=== PATIENT | male | born 1990 | race Caucasian/White ===

== ENCOUNTER 2017-03-04 23:40 | Emergency (ER) | payer SELFPAY ==
[2017-03-05 00:25] LABS: ABSOLUTE BASOPHILS # (AUTO) 0.1 10^3/uL (0.0-0.2); ABSOLUTE EOSINOPHILS # (AUTO) 0.2 10^3/uL (0.0-0.6); ABSOLUTE LYMPHOCYTES (AUTO) 3.3 10^3/uL (0.5-4.7); ABSOLUTE MONOCYTES (AUTO) 1.5 10^3/uL (0.1-1.4); ABSOLUTE NEUT (AUTO) 10.3 10^3/uL (1.7-8.2); BASOPHILS % (AUTO) 0.5 % (0-2); EOSINOPHILS % (AUTO) 1.5 % (0-6); HEMATOCRIT 38.5 % (37.9-51.0); HEMOGLOBIN 13.2 g/dL (13.5-17.0); HGB HCT DIFFERENCE 1.1; LYMPHOCYTES % (AUTO) 21.6 % (13-45); MEAN CORPUSCULAR HEMOGLOBIN 29.5 pg (27.0-33.4); MEAN CORPUSCULAR HGB CONC 34.2 g/dL (32.0-36.0); MEAN CORPUSCULAR VOLUME 86 fl (80-97); MONOCYTES % (AUTO) 9.7 % (3-13); RED BLOOD COUNT 4.48 10^6/uL (4.35-5.55); SEGMENTED NEUTROPHILS % (AUTO) 66.7 % (42-78); WHITE BLOOD COUNT 15.4 10^3/uL (4.0-10.5)
[2017-03-05 00:34] LABS: APPEARANCE,URINE CLEAR; BILIRUBIN,URINE SMALL (NEGATIVE); GLUCOSE, URINE NEGATIVE (NEGATIVE); KETONES,URINE NEGATIVE (NEGATIVE); LEUKOCYTE ESTERASE,URINE NEGATIVE (NEGATIVE); NITRITE,URINE NEGATIVE (NEGATIVE); PROTEIN,URINE 30 mg/dL (NEGATIVE); URINE SPECIFIC GRAVITY 1.044
--- NOTE | 2017-03-05 00:42 | ER Document Report ---
ED General - General Chief Complaint: SOB, urinary issue, neck pain, back pain Stated Complaint: SHORTNESS OF BREATH, URINARY PROBLEM Time Seen by Provider: 03/05/17 00:30 Notes: Patient is a 26-year-old male that comes emergency department with multiple complaints. He states he feels short of breath, he has a cough he cannot get rid of, is across his body including his back and neck, and he is urinating what appears to be pink urine. He states he feels lightheaded. Denies vomiting, fever, diarrhea. He denies chest pain. He admits to snorting both heroin and methamphetamine. He denies injecting anything. He drinks regular alcohol. He takes no daily prescribed medication. TRAVEL OUTSIDE OF THE [place] IN LAST 30 DAYS: No - Related Data Allergies/Adverse Reactions: amoxicillin [Amoxicillin] Allergy (Verified 12/18/15 04:12) Past Medical History - General Information source: Patient - Social History Smoking Status: Former Smoker Drug Abuse: Heroin, Methamphetamine Lives with: Spouse/Significant other Family History: Reviewed & Not Pertinent Renal/ Medical History: Denies: Hx Peritoneal Dialysis Psychiatric Medical History: Reports: Hx Attention Deficit Hyperactivity Disorder - ODD Past Surgical History: Reports: Hx Tonsillectomy - Immunizations Hx Diphtheria, Pertussis, Tetanus Vaccination: Yes Review of Systems - Review of Systems Constitutional: No symptoms reported EENT: No symptoms reported Cardiovascular: No symptoms reported Respiratory: See HPI Gastrointestinal: No symptoms reported Genitourinary: No symptoms reported Male Genitourinary: No symptoms reported Musculoskeletal: No symptoms reported Skin: No symptoms reported Hematologic/Lymphatic: No symptoms reported Neurological/Psychological: No symptoms reported Physical Exam - Vital signs Vitals: Temp Pulse Resp BP Pulse Ox 98.5 F 90 16 120/63 98 03/04/17 23:59 03/04/17 23:59 03/04/17 23:59 03/04/17 23:59 03/04/17 23:59 Interpretation: Normal - General General appearance: Appears well In distress: None - HEENT Head: Normocephalic, Atraumatic Eyes: Normal Conjunctiva: Normal Eyelashes: Normal Pupils: PERRL Sinus: Normal Nasal: Normal Mouth/Lips: Normal Mucous membranes: Normal Pharynx: Normal Neck: Normal. No: Meningismus - Respiratory Respiratory status: No respiratory distress. No: Respiratory distress, Labored Chest status: Nontender Breath sounds: Normal, Nonproductive cough. No: Decreased air movement, Wheezing Chest palpation: Normal - Cardiovascular Rhythm: Regular. No: Tachycardia Heart sounds: Normal auscultation, S1 appreciated, S2 appreciated Murmur: No - Abdominal Inspection: Normal Distension: No distension Bowel sounds: Normal Tenderness: Nontender Organomegaly: No organomegaly - Back Back: Normal, Nontender. No: Tender, CVA tenderness, Vertebra tenderness - Extremities General upper extremity: Normal inspection, Nontender, Normal strength, Normal temperature General lower extremity: Normal inspection, Nontender, Normal strength, Normal temperature. No: Edema - Neurological Neuro grossly intact: Yes Cognition: Normal Orientation: AAOx4 Hamlin Coma Scale Eye Opening: Spontaneous Araceli Coma Scale Verbal: Oriented Hamlin Coma Scale Motor: Obeys Commands Araceli Coma Scale Total: 15 Speech: Normal Cranial nerves: Normal Cerebellar coordination: Normal Motor strength normal: LUE, RUE, LLE, RLE Additional motor exam normals: Equal veneer gluer Sensory: Normal - Psychological Associated symptoms: Normal affect, Normal mood - Skin Skin Temperature: Warm Skin Moisture: Dry Skin Color: Normal Course - Re-evaluation Re-evalutation: Patient with a nonproductive cough on exam, however he is actually very well- appearing, alert, has no tachypnea, clear lung sounds, no hypoxia. Soft abdomen , no nuchal rigidity, normal neurovascular exam, no back pain on examination, no saddle anesthesia. Vital signs completely unremarkable. CBC shows leukocytosis at 15,000 with elevated neutrophils but no bandemia. Chemistry unremarkable, urine is consistent with dehydration but is otherwise unremarkable. Chest x-ray shows what is consistent with multifocal pneumonia, possible pulmonary edema, however this is not consistent with patient's presentation. Patient clinically has pneumonia although he is nontoxic. Given Rocephin, doxycycline. Discussed with Dr. Benson. Patient will be treated outpatient for pneumonia with doxycycline, patient will be given return precautions which were discussed in detail, instructed patient to avoid any illicit substances because of risk of infection and danger of . Patient states understanding, states that he will take the antibiotics, avoid illicit substances, and return if he worsens. states understanding and agreement as well. - Vital Signs Vital signs: Temp Pulse Resp BP Pulse Ox 98.5 F 86 16 116/68 96 03/04/17 23:59 03/05/17 03:30 03/05/17 03:30 03/05/17 03:30 03/05/17 03:30 - Laboratory Result Diagrams: 03/05/17 00:05 03/05/17 00:05 Laboratory results interpreted by me: 03/05/17 03/05/17 03/05/17 00:05 00:05 00:10 WBC 15.4 H Hgb 13.2 L Absolute Neutrophils 10.3 H Absolute Monocytes 1.5 H Direct Bilirubin 0.6 H Urine Protein 30 H Urine Bilirubin SMALL H Urine Urobilinogen 4.0 H Urine Ascorbic Acid 40 H Discharge - Discharge Clinical Impression: Shortness of breath Pneumonia Qualifiers: Pneumonia type: due to unspecified organism Laterality: bilateral Lung location : unspecified part of lung Qualified Code(s): J18.9 - Pneumonia, unspecified organism Condition: Stable Disposition: HOME, SELF-CARE Additional Instructions: Workup is consistent with pneumonia in both lungs. Remaining workup shows dehydration but no other specific concerning findings. Take the doxycycline antibiotic to completion. Follow up with Primary Care. Do not use any illegal substances. Return to the ED for any concerning or worsening symptoms including spiking fevers or difficulty breathing. Prescriptions: Doxycycline Hyclate 100 mg PO BID #14 capsule
[2017-03-05 00:56] LABS: ALANINE AMINOTRANSFERASE 35 U/L (21-72); ALBUMIN 3.9 g/dL (3.5-5.0); ALKALINE PHOSPHATASE 90 U/L (38-126); ANION GAP 12 (5-19); ASPARTATE AMINO TRANSFERASE 31 U/L (17-59); BILIRUBIN,DIRECT 0.6 mg/dL (0.0-0.4); BILIRUBIN,TOTAL 0.7 mg/dL (0.2-1.3); BLOOD UREA NITROGEN 13 mg/dL (7-20); CALCIUM 8.7 mg/dL (8.4-10.2); CARBON DIOXIDE 28 mmol/L (22-30); CHLORIDE 100 mmol/L (98-107); CREATININE RESULT 0.74 mg/dL (0.52-1.25); GLUCOSE 104 mg/dL (75-110); LIPASE 36.9 U/L (23-300); POTASSIUM 3.9 mmol/L (3.6-5.0); TOTAL PROTEIN 7.2 g/dL (6.3-8.2)
--- NOTE | 2017-03-05 02:48 | RADIOLOGY REPORT (SQ) ---
EXAM DESCRIPTION: CHEST PA/LAT COMPLETED DATE/TIME: 03/05/2017 1:45 am REASON FOR STUDY: shortness of breath COMPARISON: None. EXAM PARAMETERS: NUMBER OF VIEWS: two views TECHNIQUE: Digital Frontal and Lateral radiographic views of the chest acquired. RADIATION DOSE: NA LIMITATIONS: none FINDINGS: LUNGS AND PLEURA: Moderate bilateral pulmonary edema pattern with airspace patchiness. Mo derate lung volumes. MEDIASTINUM AND HILAR STRUCTURES: No masses or contour abnormalities. HEART AND VASCULAR STRUCTURES: Heart normal size. No evidence for failure. BONES: No acute findings. HARDWARE: None in the chest. OTHER: No other significant finding. IMPRESSION: Moderate pulmonary edema pattern with airspace patchiness and/or multifocal pneumonia. TECHNICAL DOCUMENTATION: JOB ID: [id number] [employer]- All Rights Reserved
[2017-03-05] MEDS ORDERED: DOXYCYCLINE HYCLATE 100 MG TABLET PO ONE (02:54)
[2017-03-05] MEDS ORDERED: NORMAL SALINE 1000 ML 1,000 ML IV ONE (02:55)
[2017-03-05] MEDS ORDERED: CEFTRIAXONE 1 GM/D5W RTU 50 ML IV ONE (02:55)
[2017-03-05 04:00] VITALS: BP 116/68
== END 2017-03-05 04:44 | disposition home or self-care (01) ==
LOC: ER 23:40
DX: R06.02 Shortness of breath (principal); J18.9 Pneumonia, unspecified organism; F15.10 Other stimulant abuse, uncomplicated; F11.10 Opioid abuse, uncomplicated; R82.99 Other abnormal findings in urine; M54.9 Dorsalgia, unspecified; M54.2 Cervicalgia; Z87.891 Personal history of nicotine dependence
CPT/HCPCS: 99285; 96365; 36415; 87040; 83690; 85025; 80053; 81001; 71020; J0696

== ENCOUNTER 2017-03-06 06:11 | Emergency (ER) | payer SELFPAY ==
[2017-03-06 06:23] VITALS: BP 133/62
--- NOTE | 2017-03-06 06:41 | ER Document Report ---
Doctor's Note Notes: 03/06/17 06:39 Went to go see patient, but patient quickly left without being seen from his room. Vitals stable. He told the triage nurse that he could not fill his doxycycline from his visit 2 days ago. Attempted to call the number provided twice, but no answer.
== END 2017-03-06 06:30 | disposition left against medical advice (07) ==
LOC: ER 06:11
DX: Z53.9 Procedure and treatment not carried out, unspecified reason (principal); R06.02 Shortness of breath

== ENCOUNTER 2017-04-19 04:22 | Emergency (ER) | payer SELFPAY ==
[2017-04-19] MEDS ORDERED: ASPIRIN 81 MG TABLET, CHEWABLE PO ONE (04:55)
[2017-04-19 05:29] LABS: ABSOLUTE BASOPHILS # (AUTO) 0.1 10^3/uL (0.0-0.2); ABSOLUTE EOSINOPHILS # (AUTO) 0.3 10^3/uL (0.0-0.6); ABSOLUTE LYMPHOCYTES (AUTO) 4.2 10^3/uL (0.5-4.7); EOSINOPHILS % (AUTO) 2.2 % (0-6); HEMATOCRIT 41.8 % (37.9-51.0); HEMOGLOBIN 13.7 g/dL (13.5-17.0); HGB HCT DIFFERENCE -0.7; LYMPHOCYTES % (AUTO) 36.5 % (13-45); MEAN CORPUSCULAR HEMOGLOBIN 28.8 pg (27.0-33.4); MEAN CORPUSCULAR HGB CONC 32.8 g/dL (32.0-36.0); MEAN CORPUSCULAR VOLUME 88 fl (80-97); MONOCYTES % (AUTO) 8.9 % (3-13); RED BLOOD COUNT 4.76 10^6/uL (4.35-5.55); RED CELL DISTRIBUTION WIDTH 13.1 % (11.5-14.0); SEGMENTED NEUTROPHILS % (AUTO) 51.4 % (42-78); WHITE BLOOD COUNT 11.6 10^3/uL (4.0-10.5)
[2017-04-19 05:45] LABS: ALANINE AMINOTRANSFERASE 61 U/L (21-72); ALKALINE PHOSPHATASE 86 U/L (38-126); ANION GAP 10 (5-19); ASPARTATE AMINO TRANSFERASE 29 U/L (17-59); BILIRUBIN,DIRECT 0.3 mg/dL (0.0-0.4); BILIRUBIN,TOTAL 0.4 mg/dL (0.2-1.3); BLOOD UREA NITROGEN 14 mg/dL (7-20); CALCIUM 9.7 mg/dL (8.4-10.2); CARBON DIOXIDE 27 mmol/L (22-30); CHLORIDE 104 mmol/L (98-107); CREATINE KINASE 61 U/L (55-170); CREATININE RESULT 0.75 mg/dL (0.52-1.25); GLUCOSE 97 mg/dL (75-110); POTASSIUM 4.3 mmol/L (3.6-5.0); SODIUM 141.3 mmol/L (137-145); TOTAL PROTEIN 6.7 g/dL (6.3-8.2)
[2017-04-19 05:55] LABS: CREATINE KINASE MB 0.25 ng/mL (<4.55)
[2017-04-19 05:56] LABS: TROPONIN I < 0.012 ng/mL
--- NOTE | 2017-04-19 06:16 | RADIOLOGY REPORT (SQ) ---
EXAM DESCRIPTION: CHEST SINGLE VIEW COMPLETED DATE/TIME: 04/19/2017 6:06 am REASON FOR STUDY: chest pain COMPARISON: Chest x-ray 03/05/2017. EXAM PARAMETERS: NUMBER OF VIEWS: One view. TECHNIQUE: Single frontal radiographic view of the chest acquired. RADIATION DOSE: NA LIMITATIONS: None. FINDINGS: LUNGS AND PLEURA: No consolidation, pneumothorax or pleural effusion. MEDIASTINUM AND HILAR STRUCTURES: No masses. Contour normal. HEART AND VASCULAR STRUCTURES: Heart normal in size. Normal vasculature. BONES: No acute findings. HARDWARE: None in the chest. IMPRESSION: No acute radiographic finding in the chest. TECHNICAL DOCUMENTATION: JOB ID: [id number]
[2017-04-19] MEDS ORDERED: DEXAMETHASONE SOD PHOS INJ 10 MG/1 ML VIAL IV ONE (06:52)
[2017-04-19] MEDS ORDERED: KETOROLAC TROMETHAMINE INJ/PF 30 MG/1 ML SDV IV ONE (06:52)
--- NOTE | 2017-04-19 07:05 | ER Document Report ---
ED General - General Chief Complaint: Chest Pain Stated Complaint: CHEST PAIN Time Seen by Provider: 04/19/17 06:22 TRAVEL OUTSIDE OF THE [place] IN LAST 30 DAYS: No - HPI Patient complains to provider of: Chest wall pain ear pain neck pain sore throat Notes: Patient coming in for the above-stated symptoms ongoing for the last 3-4 days. Patient denies any sick contacts. Patient denies fevers chills nausea vomiting abdominal pain. Denies any recent antibiotics travel. Upon my evaluation patient sleeping easily arousable. States he has been taking Tylenol Motrin at home for pain however no relief in symptoms. - Related Data Allergies/Adverse Reactions: amoxicillin [Amoxicillin] Allergy (Verified 03/06/17 06:15) Past Medical History - Social History Smoking Status: Unknown if Ever Smoked Family History: Reviewed & Not Pertinent Renal/ Medical History: Denies: Hx Peritoneal Dialysis Psychiatric Medical History: Reports: Hx Attention Deficit Hyperactivity Disorder - ODD Past Surgical History: Reports: Hx Tonsillectomy - Immunizations Hx Diphtheria, Pertussis, Tetanus Vaccination: Yes Review of Systems - Review of Systems Constitutional: No symptoms reported EENT: No symptoms reported Cardiovascular: Chest pain Respiratory: No symptoms reported Gastrointestinal: No symptoms reported Genitourinary: No symptoms reported Male Genitourinary: No symptoms reported Musculoskeletal: No symptoms reported Skin: No symptoms reported Hematologic/Lymphatic: No symptoms reported Neurological/Psychological: No symptoms reported -: Yes All other systems reviewed and negative Physical Exam - Vital signs Vitals: Temp Pulse Resp BP Pulse Ox 97.5 F 72 18 136/84 H 99 04/19/17 04:31 04/19/17 04:31 04/19/17 04:31 04/19/17 04:31 04/19/17 04:31 Interpretation: Normal - General General appearance: Appears well, Alert - HEENT Head: Normocephalic, Atraumatic Eyes: Normal Conjunctiva: Normal Cornea: Normal Pupils: PERRL Ears: Normal External canal: Normal Sinus: Normal Nasal: Normal Mouth/Lips: Normal Pharynx: Normal Neck: Normal - Respiratory Respiratory status: No respiratory distress Chest status: Nontender, Tender - Tenderness to palpation reproduces patient's symptoms Breath sounds: Normal Chest palpation: Normal - Cardiovascular Rhythm: Regular Heart sounds: Normal auscultation Murmur: No - Abdominal Inspection: Normal Distension: No distension Bowel sounds: Normal Tenderness: Nontender Organomegaly: No organomegaly - Back Back: Normal, Nontender - Extremities General upper extremity: Normal inspection, Nontender, Normal color, Normal ROM , Normal temperature General lower extremity: Normal inspection, Nontender, Normal color, Normal ROM , Normal temperature, Normal weight bearing. No: Gaurav's sign - Neurological Neuro grossly intact: Yes Cognition: Normal Orientation: AAOx4 Araceli Coma Scale Eye Opening: Spontaneous Araceli Coma Scale Verbal: Oriented Araceli Coma Scale Motor: Obeys Commands Wilson Coma Scale Total: 15 Speech: Normal Motor strength normal: LUE, RUE, LLE, RLE Sensory: Normal - Psychological Associated symptoms: Normal affect, Normal mood - Skin Skin Temperature: Warm Skin Moisture: Dry Skin Color: Normal Course - Re-evaluation Re-evalutation: 04/19/17 13:57 The patient has atypical chest pain as the patient's chest pain is not suggestive of pulmonary embolus, cardiac ischemia, aortic dissection, or other serious etiology. Given the extremely low risk of these diagnoses further testing and evaluation for these possibilities does not appear to be indicated at this time. The patient has been instructed to return if the symptoms worsen or change in any way. Patient symptoms more likely her viral nature. Patient will be discharged - Vital Signs Vital signs: Temp Pulse Resp BP Pulse Ox 97.5 F 72 18 124/65 99 04/19/17 04:31 04/19/17 04:31 04/19/17 04:31 04/19/17 07:01 04/19/17 07:01 - Laboratory Result Diagrams: 04/19/17 05:17 04/19/17 05:17 Laboratory results interpreted by me: 04/19/17 05:17 WBC 11.6 H Discharge - Discharge Clinical Impression: Chest wall pain Arthralgia Qualifiers: Joint pain location: unspecified Qualified Code(s): M25.50 - Pain in unspecified joint Condition: Good Disposition: HOME, SELF-CARE Instructions: Anti-Inflammatory Medication ([facility]), Chest Wall Pain ([facility]), Viral Syndrome ([facility]) Additional Instructions: Your laboratory studies today do not show any signs of significant pathology. Your examination is otherwise normal. More likely you are experiencing symptoms due to her virus. Please make sure to drink plenty of water. Continue take Tylenol and anti-inflammatory medication for your pain. Prescriptions: Naproxen [Naprosyn 250 mg Tablet] 250 mg PO DAILY PRN #30 tablet PRN Reason: Forms: Return to Work
[2017-04-19 07:07] VITALS: BP 124/65
--- NOTE | 2017-04-19 20:24 | EKG REPORT ---
SEVERITY:- NORMAL ECG - SINUS RHYTHM : Confirmed by: Prudencio Singh MD 19-Apr-2017 20:23:30
== END 2017-04-19 07:07 | disposition home or self-care (01) ==
LOC: ER 04:22
DX: R07.89 Other chest pain (principal); M25.50 Pain in unspecified joint; H92.09 Otalgia, unspecified ear; M54.2 Cervicalgia; J02.9 Acute pharyngitis, unspecified; Z88.0 Allergy status to penicillin
CPT/HCPCS: 93005; 99285; 96374; 96375; 36415; 82553; 82550; 85025; 80053; 84484; 71010; 93010; J1885; J1100

== ENCOUNTER 2017-04-25 16:50 | Observation (INO) | payer SELFPAY ==
[2017-04-25] MEDS ORDERED: IPRATROPIUM/ALBUTEROL 0.5-2.5 MG/3 ML AMPUL NEB ONE ×3 (17:05→19:25)
[2017-04-25] MEDS ORDERED: METHYLPREDNISOLONE INJ 125 MG/2 ML SDV IV ONE ×2 (17:05→17:10)
[2017-04-25] MEDS ORDERED: ALBUTEROL SULFATE 0.083% NEB 2.5 MG/3 ML AMPUL NEB ONE (17:05)
--- NOTE | 2017-04-25 17:08 | ER Document Report ---
ED Medical Screen (RME) - General Chief Complaint: Shortness Of Breath Stated Complaint: CHEST PAIN Time Seen by Provider: 04/25/17 16:59 Mode of Arrival: Ambulatory Information source: Patient TRAVEL OUTSIDE OF THE [place] IN LAST 30 DAYS: No - HPI Patient complains to provider of: Cough, difficulty breathing, chest tightness Notes: 04/25/17 17:08 Patient is a 26-year-old male presenting to the emergency room today complaining of cough, difficulty breathing and chest tightness, symptoms have been going on for the past month or so and states he was diagnosed with pneumonia, he was noncompliant with completing treatment, and symptoms have worsened, he also reports that he was exposed to Drano fumes 3 days ago - Related Data Allergies/Adverse Reactions: amoxicillin [Amoxicillin] Allergy (Verified 03/06/17 06:15) Past Medical History Renal/ Medical History: Denies: Hx Peritoneal Dialysis Psychiatric Medical History: Reports: Hx Attention Deficit Hyperactivity Disorder - ODD Past Surgical History: Reports: Hx Tonsillectomy - Immunizations Hx Diphtheria, Pertussis, Tetanus Vaccination: Yes
--- NOTE | 2017-04-25 17:09 | ER Document Report ---
ED Respiratory Problem - General Mode of Arrival: Ambulatory Information source: Patient TRAVEL OUTSIDE OF THE [place] IN LAST 30 DAYS: No <SUYAPA JACOBSON - Last Filed: 04/25/17 22:06> <JASON OROZCO - Last Filed: 04/25/17 22:28> - General Chief Complaint: Shortness Of Breath Stated Complaint: CHEST PAIN Time Seen by Provider: 04/25/17 16:59 Notes: Patient is a 26-year-old male who presents to the emergency department today with complaints of a cough. Patient states he was recently diagnosed with pneumonia however he stopped taking his antibiotics because he thought he was fine. Patient admits to methamphetamine abuse, stating he injects it with the last time being 3 days ago. Patient is a smoker and has continued to smoke. ( SUYAPA JACOBSON) - Related Data Allergies/Adverse Reactions: amoxicillin [Amoxicillin] Allergy (Verified 04/25/17 18:34) Past Medical History - General Information source: Patient - Social History Smoking Status: Current Every Day Smoker Cigarette use (# per day): Yes Frequency of alcohol use: None Drug Abuse: Methamphetamine - injected, last time three days ago Lives with: Family Family History: Reviewed & Not Pertinent Psychiatric Medical History: Reports: Hx Attention Deficit Hyperactivity Disorder - ODD Past Surgical History: Reports: Hx Tonsillectomy - Immunizations Hx Diphtheria, Pertussis, Tetanus Vaccination: Yes <SUYAPA JACOBSON - Last Filed: 04/25/17 22:06> Review of Systems - Review of Systems Constitutional: No symptoms reported EENT: No symptoms reported Cardiovascular: See HPI, Heart racing Respiratory: See HPI, Cough Gastrointestinal: No symptoms reported Genitourinary: No symptoms reported Male Genitourinary: No symptoms reported Musculoskeletal: No symptoms reported Skin: No symptoms reported Hematologic/Lymphatic: No symptoms reported Neurological/Psychological: No symptoms reported -: Yes All other systems reviewed and negative <SUYAPA JACOBSON - Last Filed: 04/25/17 22:06> Physical Exam <SUYAPA JACOBSON - Last Filed: 04/25/17 22:06> <JASON OROZCO - Last Filed: 04/25/17 22:28> - Vital signs Vitals: Temp Pulse Resp BP Pulse Ox 101.0 F H 148 H 22 H 132/99 H 96 04/25/17 17:04 04/25/17 17:04 04/25/17 17:04 04/25/17 17:04 04/25/17 17:04 - Notes Notes: Physical Exam: General: Alert, moderate distress, appears uncomfortable, coughing. HEENT: Normocephalic. Atraumatic. PERRL. Extraocular movements intact. Oropharynx clear. Neck: Supple. Non-tender. Respiratory: Moderate respiratory distress. Decreased breath sounds bilaterally. Wheezing bilaterally. Cardiovascular: Regular rate and rhythm. Abdominal: Normal Inspection. Non-tender. No distension. Normal Bowel Sounds. Back: Non-tender. No deformity or step off. Extremities: Moves all four extremities. Upper extremities: Normal inspection. Normal ROM. Lower extremities: Normal inspection. No edema. Normal ROM. Neurological: Normal cognition. AAOx4. Normal speech. Psychological: Normal affect. Normal Mood. Skin: Warm. Dry. Normal color. (SUYAPA JACOBSON) Course - Laboratory Result Diagrams: 04/25/17 18:30 04/25/17 15:23 <SUYAPA JACOBSON - Last Filed: 04/25/17 22:06> - Laboratory Result Diagrams: 04/25/17 18:30 04/25/17 15:23 - Diagnostic Test Radiology reviewed: Reports reviewed <JASON OROZCO - Last Filed: 04/25/17 22:28> - Re-evaluation Re-evalutation: 04/25/17 19:26 Improvement of respiratory status with medications. Pneumonia on chest x-ray. 04/25/17 20:20 Patient is a 26-year-old male who comes in with difficulty breathing and cough. Patient has leukocytosis, chest x-ray concerning for pneumonia. Patient has had improvement of his respiratory distress and wheezing after DuoNeb's, Solu- Medrol. He has been given antibiotics for failed outpatient management of pneumonia. Patient will be referred to the hospitalist service for admission. Understands and agrees with plan. Stable at time of admission. (JASON OROZCO) - Vital Signs Vital signs: Temp Pulse Resp BP Pulse Ox 98.1 F 148 H 18 126/64 H 99 04/25/17 21:21 04/25/17 17:04 04/25/17 21:21 04/25/17 21:21 04/25/17 21:21 - Laboratory Laboratory results interpreted by me: 04/25/17 04/25/17 15:23 18:30 WBC 24.4 H Hgb 13.4 L Band Neutrophils % 1 L Lymphocytes % (Manual) 12 L Abs Neuts (Manual) 18.5 H Abs Monocytes (Manual) 2.0 H Carbon Dioxide 18 L Direct Bilirubin 0.7 H Critical Care Note - Critical Care Note Total time excluding time spent on procedures (mins): 45 - Evaluation and management of respiratory distress, multiple re-evaluations, management of potential airway complication, diagnosis and treatment of pneumonia, coordination of admission, counseling of patient <JASON OROZCO - Last Filed: 04/25/17 22:28> Discharge <SUYAPA JACOBSON - Last Filed: 04/25/17 22:06> - Discharge Admitting Provider: [facility] Unit Admitted: Telemetry <JASON OROZCO - Last Filed: 04/25/17 22:28> - Discharge Clinical Impression: Respiratory distress, Bronchospasm Pneumonia Qualifiers: Pneumonia type: due to unspecified organism Laterality: right Lung location: lower lobe of lung Qualified Code(s): J18.1 - Lobar pneumonia, unspecified organism Condition: Stable Disposition: ADMITTED INPATIENT Scribe Attestation: 04/25/17 22:28 I personally performed the services described in the documentation, reviewed and edited the documentation which was dictated to the scribe in my presence, and it accurately records my words and actions. (JASON OROZCO) Scribe Documentation - Scribe Written by Kiara:: Kiara Jose, 04/25/2017 1849 acting as scribe for :: Dash <SUYAPA JACOBSON - Last Filed: 04/25/17 22:06>
[2017-04-25] MEDS ORDERED: NORMAL SALINE 1000 ML 1,000 ML IV ONE ×2 (17:10→19:25)
[2017-04-25] MEDS ORDERED: ACETAMINOPHEN 325 MG TABLET PO ONE (17:11)
[2017-04-25 17:48] LABS: PROTHROMBIN TIME 14.4 SEC (11.4-15.4)
[2017-04-25 17:55] LABS: ALANINE AMINOTRANSFERASE 35 U/L (21-72); ALBUMIN 4.4 g/dL (3.5-5.0); ALKALINE PHOSPHATASE 111 U/L (38-126); ANION GAP 17 (5-19); ASPARTATE AMINO TRANSFERASE 24 U/L (17-59); BILIRUBIN,DIRECT 0.7 mg/dL (0.0-0.4); BILIRUBIN,TOTAL 1.1 mg/dL (0.2-1.3); BLOOD UREA NITROGEN 9 mg/dL (7-20); CALCIUM 9.6 mg/dL (8.4-10.2); CARBON DIOXIDE 18 mmol/L (22-30); CHLORIDE 104 mmol/L (98-107); CREATININE RESULT 0.93 mg/dL (0.52-1.25); GLUCOSE 106 mg/dL (75-110); POTASSIUM 3.8 mmol/L (3.6-5.0); SODIUM 138.9 mmol/L (137-145); TOTAL PROTEIN 7.5 g/dL (6.3-8.2)
--- NOTE | 2017-04-25 17:58 | RADIOLOGY REPORT (SQ) ---
EXAM DESCRIPTION: CHEST SINGLE VIEW COMPLETED DATE/TIME: 04/25/2017 5:50 pm REASON FOR STUDY: db COMPARISON: 04/19/2017. EXAM PARAMETERS: NUMBER OF VIEWS: One view. TECHNIQUE: Single frontal radiographic view of the chest acquired. RADIATION DOSE: NA LIMITATIONS: None. FINDINGS: LUNGS AND PLEURA: Possible faint density in the lateral right lung base. No pleural effus ion. No pneumothorax. MEDIASTINUM AND HILAR STRUCTURES: No masses. Contour normal. HEART AND VASCULAR STRUCTURES: Heart normal in size. Normal vasculature. BONES: No acute findings. HARDWARE: None in the chest. OTHER: No other significant finding. IMPRESSION: POSSIBLE EARLY INFILTRATE IN THE RIGHT LUNG BASE. TECHNICAL DOCUMENTATION: JOB ID: [id number]
[2017-04-25 18:12] LABS: CREATINE KINASE MB < 0.22 ng/mL (<4.55); TROPONIN I < 0.012 ng/mL
[2017-04-25] MEDS ORDERED: LEVOFLOXACIN 750 MG/D5W RTU 750 MG/150 ML RTUPB IV ONE (18:38)
[2017-04-25] MEDS ORDERED: VANCOMYCIN HCL INJ 1000 MG VIAL IV ONE (18:38)
[2017-04-25] MEDS ORDERED: CEFEPIME 2 GM/D5W RTU 2 GM/50 ML RTUPB IV ONE (18:38)
[2017-04-25 18:54] LABS: HEMATOCRIT 38.4 % (37.9-51.0); HEMOGLOBIN 13.4 g/dL (13.5-17.0); HGB HCT DIFFERENCE 1.8; MEAN CORPUSCULAR HEMOGLOBIN 29.1 pg (27.0-33.4); MEAN CORPUSCULAR HGB CONC 34.8 g/dL (32.0-36.0); RED CELL DISTRIBUTION WIDTH 12.9 % (11.5-14.0); WHITE BLOOD COUNT 24.4 10^3/uL (4.0-10.5)
[2017-04-25 19:13] LABS: BAND NEUTROPHILS % (MANUAL) 1 % (3-5); BASOPHILS % (MANUAL) 1 % (0-2); EOSINOPHILS % (MANUAL) 1 % (0-6); LYMPHOCYTES % (MANUAL) 12 % (13-45); TOTAL CELLS COUNTED 100
[2017-04-25 19:14] LABS: POLYCHROMASIA SLIGHT
[2017-04-25 19:16] LABS: MEAN CORPUSCULAR VOLUME 84 fl (80-97)
[2017-04-25] MEDS ORDERED: ACETAMINOPHEN 325 MG TABLET PO PRN (20:26)
[2017-04-25] MEDS ORDERED: NORMAL SALINE 1000 ML 1,000 ML IV SCH (20:30)
[2017-04-25] MEDS ORDERED: HALOPERIDOL LACTATE INJ 5 MG/1 ML VIAL IV PRN (22:37)
[2017-04-25] MEDS: GUAIFENESIN 600 MG TABLET.SA PO SCH (22:55)
[2017-04-25] MEDS: HEPARIN SOD (PORCINE) 5,000 UNIT/ML 1 ML SYRINGE SUBCUT SCH (22:55)
--- NOTE | 2017-04-25 23:10 | PDOC H&P ---
History of Present Illness Admission Date/PCP: 04/25/17 21:13 Patient complains of: Shortness of breath and fever History of Present Illness: MINNA UMAÑA is a 26 year old male with a past medical history of polysubstance abuse, tobacco and recent smoking methamphetamine. He has had approximately 3 weeks of intermittent shortness of breath, nonproductive cough and fever for which she has sought evaluation in multiple emergency rooms. He has been diagnosed with pneumonia and prescribed antibiotics but has not filled nor discontinued tobacco or polysubstance abuse. Today he develops sharp 3 out of 5 intermittent retrosternal chest pain exacerbated by deep breathing. In the emergency room he was found to have right lower lobe pneumonia, leukocytosis and fever. He started on empiric antibiotics and referred to the hospitalist for admission. Past Medical History Psychiatric Medical History: Reports: Alcohol Dependency, Attention Deficit Hyperactivity Disorder - ODD, Substance Abuse, Tobacco Dependency Past Surgical History Past Surgical History: Reports: Tonsillectomy Social History Lives with: Family Smoking Status: Current Every Day Smoker Frequency of Alcohol Use: Social Hx Recreational Drug Use: No Drugs: Marijuana, Other - Methamphetamine, heroin Hx Prescription Drug Abuse: No - Advance Directive Resuscitation Status: Full Code Family History Family History: COPD Parental Family History Reviewed: Yes Children Family History Reviewed: Yes Sibling(s) Family History Reviewed.: Yes Medication/Allergy Home Medications: Naproxen [Naprosyn 250 mg Tablet] 250 mg PO DAILY PRN #30 tablet 04/19/17 Allergies/Adverse Reactions: amoxicillin [Amoxicillin] Allergy (Verified 04/25/17 18:34) Review of Systems Constitutional: PRESENT: chills, fatigue, fever(s), weakness Eyes: ABSENT: visual disturbances Ears: ABSENT: hearing changes Cardiovascular: ABSENT: chest pain, dyspnea on exertion, edema, orthropnea, palpitations Respiratory: PRESENT: as per HPI, cough, dyspnea, sputum, other - Pleuritic chest pain Gastrointestinal: ABSENT: abdominal pain, constipation, diarrhea, hematemesis, hematochezia, nausea, vomiting Genitourinary: ABSENT: dysuria, hematuria Musculoskeletal: ABSENT: joint swelling Integumentary: ABSENT: rash, wounds Neurological: ABSENT: abnormal gait, abnormal speech, confusion, dizziness, focal weakness, syncope Psychiatric: PRESENT: anxiety. ABSENT: depression, homidical ideation, suicidal ideation Endocrine: ABSENT: cold intolerance, heat intolerance, polydipsia, polyuria Hematologic/Lymphatic: ABSENT: easy bleeding, easy bruising Physical Exam Vital Signs: Temp Pulse Resp BP Pulse Ox 97.6 F 106 H 16 129/67 H 100 04/25/17 22:53 04/25/17 22:53 04/25/17 22:53 04/25/17 22:53 04/25/17 22:53 Intake & Output 04/24/17 04/25/17 04/26/17 11:59 11:59 11:59 Weight 104.2 kg General appearance: PRESENT: cooperative, disheveled, mild distress Head exam: PRESENT: atraumatic, normocephalic Eye exam: PRESENT: conjunctiva pink, EOMI, PERRLA. ABSENT: scleral icterus Ear exam: PRESENT: normal external ear exam Mouth exam: PRESENT: moist, tongue midline Neck exam: ABSENT: carotid bruit, JVD, lymphadenopathy, thyromegaly Respiratory exam: PRESENT: crackles, decreased breath sounds, rales, rhonchi, tachypnea. ABSENT: accessory muscle use, chest wall tenderness, clear to auscultation kostas, retraction, wheezes Cardiovascular exam: PRESENT: RRR, tachycardia. ABSENT: diastolic murmur, rubs , systolic murmur Pulses: PRESENT: normal dorsalis pedis pul Vascular exam: PRESENT: normal capillary refill GI/Abdominal exam: PRESENT: normal bowel sounds, soft. ABSENT: distended, guarding, mass, organolmegaly, rebound, tenderness Rectal exam: PRESENT: deferred Extremities exam: PRESENT: full ROM. ABSENT: calf tenderness, clubbing, pedal edema Neurological exam: PRESENT: alert, awake, oriented to person, oriented to place , oriented to time, oriented to situation, CN II-XII grossly intact. ABSENT: motor sensory deficit Psychiatric exam: PRESENT: anxious Skin exam: PRESENT: dry, intact, warm. ABSENT: cyanosis, rash Results Laboratory Results: 04/25/17 21:35 Troponin I < 0.012 Impressions: Chest X-Ray 04/25/17 17:05 IMPRESSION: POSSIBLE EARLY INFILTRATE IN THE RIGHT LUNG BASE. Assessment & Plan - Diagnosis (1) Pneumonia Qualifiers: Pneumonia type: due to unspecified organism Laterality: right Lung location: lower lobe of lung Qualified Code(s): J18.1 - Lobar pneumonia, unspecified organism Is this a current diagnosis for this admission?: Yes Plan: Pneumonia care set, empiric antibiotics, albuterol and Atrovent. Given recent incarceration evaluate for HIV. Follow-up CBC and culture (2) Polysubstance abuse Is this a current diagnosis for this admission?: Yes Plan: Anticipate amphetamine withdrawal, symptomatic management as needed Haldol (3) Bronchospasm Is this a current diagnosis for this admission?: Yes Plan: Albuterol and Atrovent avoidance of tobacco and substance abuse - Time Time Spent: 50 to 70 Minutes - Inpatient Certification Medical Necessity: Need Close Monitoring Due to Risk of Patient Decompensation
[2017-04-26] MEDS: IPRATROPIUM/ALBUTEROL 0.5-2.5 MG/3 ML AMPUL NEB SCH ×4 (02:36→20:50)
[2017-04-26 05:42] LABS: ABSOLUTE LYMPHOCYTES (AUTO) 1.3 10^3/uL (0.5-4.7); ABSOLUTE MONOCYTES (AUTO) 0.6 10^3/uL (0.1-1.4); ABSOLUTE NEUT (AUTO) 13.7 10^3/uL (1.7-8.2); BASOPHILS % (AUTO) 0.1 % (0-2); HEMATOCRIT 35.6 % (37.9-51.0); HEMOGLOBIN 12.4 g/dL (13.5-17.0); HGB HCT DIFFERENCE 1.6; LYMPHOCYTES % (AUTO) 8.6 % (13-45); MEAN CORPUSCULAR HEMOGLOBIN 29.5 pg (27.0-33.4); MEAN CORPUSCULAR HGB CONC 34.7 g/dL (32.0-36.0); MEAN CORPUSCULAR VOLUME 85 fl (80-97); MONOCYTES % (AUTO) 4.1 % (3-13); RED CELL DISTRIBUTION WIDTH 13.2 % (11.5-14.0); SEGMENTED NEUTROPHILS % (AUTO) 87.2 % (42-78); WHITE BLOOD COUNT 15.7 10^3/uL (4.0-10.5)
[2017-04-26 05:56] LABS: ANION GAP 11 (5-19); BLOOD UREA NITROGEN 9 mg/dL (7-20); CALCIUM 9.4 mg/dL (8.4-10.2); CARBON DIOXIDE 22 mmol/L (22-30); CHLORIDE 108 mmol/L (98-107); CREATININE RESULT 0.62 mg/dL (0.52-1.25); GLUCOSE 183 mg/dL (75-110); POTASSIUM 3.8 mmol/L (3.6-5.0); SODIUM 141.1 mmol/L (137-145)
[2017-04-26] MEDS: HEPARIN SOD (PORCINE) 5,000 UNIT/ML 1 ML SYRINGE SUBCUT SCH ×3 (06:13→22:43)
[2017-04-26] MEDS ORDERED: HALOPERIDOL LACTATE INJ 5 MG/1 ML VIAL IV PRN (08:23)
[2017-04-26] MEDS: GUAIFENESIN 600 MG TABLET.SA PO SCH ×2 (10:53→22:43)
--- NOTE | 2017-04-26 11:51 | EKG REPORT ---
SEVERITY:- OTHERWISE NORMAL ECG - SINUS TACHYCARDIA : Confirmed by: Denisse Cary 26-Apr-2017 11:51:14
--- NOTE | 2017-04-26 13:56 | PDOC PROGRESS REPORT ---
Subjective Progress Note for:: 04/26/17 Subjective:: Patient seen on morning rounds . Continues to have cough. He is resting comfortably in bed. His is at bedside. He denies chest pain, dyspnea or palpitations. Denies fever or chills. He denies nausea, abdominal pain or diarrhea. Mainly review of systems is negative Physical Exam Vital Signs: Temp Pulse Resp BP Pulse Ox 98.1 F 97 18 111/50 L 98 04/26/17 11:44 04/26/17 13:44 04/26/17 13:44 04/26/17 11:44 04/26/17 13:44 Intake & Output 04/25/17 04/26/17 04/27/17 06:59 06:59 06:59 Intake Total 1550 Balance 1550 Weight 104.2 kg General appearance: PRESENT: no acute distress, obese, well-developed, well- nourished Head exam: PRESENT: atraumatic Eye exam: PRESENT: conjunctiva pink, EOMI, PERRLA. ABSENT: scleral icterus Ear exam: PRESENT: bleeding Mouth exam: PRESENT: moist, tongue midline Neck exam: ABSENT: carotid bruit, JVD, lymphadenopathy, thyromegaly Respiratory exam: PRESENT: crackles - right base, rhonchi, symmetrical, unlabored Cardiovascular exam: PRESENT: RRR. ABSENT: diastolic murmur, rubs, systolic murmur Pulses: PRESENT: normal dorsalis pedis pul Vascular exam: PRESENT: normal capillary refill GI/Abdominal exam: PRESENT: normal bowel sounds, soft. ABSENT: distended, guarding, mass, organolmegaly, rebound, tenderness Rectal exam: PRESENT: deferred Extremities exam: PRESENT: full ROM. ABSENT: calf tenderness, clubbing, pedal edema Neurological exam: PRESENT: alert, awake, oriented to person, oriented to place , oriented to time, oriented to situation, CN II-XII grossly intact. ABSENT: motor sensory deficit Psychiatric exam: PRESENT: appropriate affect, normal mood. ABSENT: homicidal ideation, suicidal ideation Skin exam: PRESENT: dry, intact, warm. ABSENT: cyanosis, rash Results Laboratory Results: 04/26/17 04:41 04/26/17 04:41 04/26/17 04/26/17 04:41 04:41 WBC 15.7 H RBC 4.20 L Hgb 12.4 L Hct 35.6 L MCV 85 MCH 29.5 MCHC 34.7 RDW 13.2 Plt Count 265 Seg Neutrophils % 87.2 H Lymphocytes % 8.6 L Monocytes % 4.1 Eosinophils % 0.0 Basophils % 0.1 Absolute Neutrophils 13.7 H Absolute Lymphocytes 1.3 Absolute Monocytes 0.6 Absolute Eosinophils 0.0 Absolute Basophils 0.0 Sodium 141.1 Potassium 3.8 Chloride 108 H Carbon Dioxide 22 Anion Gap 11 BUN 9 Creatinine 0.62 Est GFR ( Amer) > 60 Est GFR (Non-Af Amer) > 60 Glucose 183 H Calcium 9.4 04/25/17 21:35 Troponin I < 0.012 Impressions: Chest X-Ray 04/25/17 17:05 IMPRESSION: POSSIBLE EARLY INFILTRATE IN THE RIGHT LUNG BASE. Assessment & Plan - Diagnosis (1) Respiratory distress Is this a current diagnosis for this admission?: Yes Plan: Improved with IV steroids, nebulizer treatments, broad-spectrum antibiotics. (2) Bronchospasm Is this a current diagnosis for this admission?: Yes (3) Pneumonia Qualifiers: Pneumonia type: due to unspecified organism Laterality: right Lung location: lower lobe of lung Qualified Code(s): J18.1 - Lobar pneumonia, unspecified organism Is this a current diagnosis for this admission?: Yes Plan: #1 (4) Chest wall pain Is this a current diagnosis for this admission?: Yes Plan: IV steroids and taper. (5) Leukocytosis Qualifiers: Leukocytosis type: unspecified Qualified Code(s): D72.829 - Elevated white blood cell count, unspecified Is this a current diagnosis for this admission?: Yes Plan: Improving with current treatment. Secondary to right lower lobe pneumonia. (6) GERD (gastroesophageal reflux disease) Qualifiers: Esophagitis presence: without esophagitis Qualified Code(s): K21.9 - Gastro -esophageal reflux disease without esophagitis Is this a current diagnosis for this admission?: Yes Plan: Continue PPI therapy (7) Tobacco abuse Is this a current diagnosis for this admission?: Yes Plan: Patient's was counseled. He is not contemplating quitting. - Time Time Spent with patient: 25-34 minutes Critical Time spent with patient: 15-24 minutes Medications reviewed and adjusted accordingly: Yes Anticipated discharge: Home
[2017-04-26] MEDS: METHYLPREDNISOLONE INJ 125 MG/2 ML SDV IV SCH ×2 (14:07→22:43)
[2017-04-26] MEDS: LEVOFLOXACIN 750 MG/D5W RTU 750 MG/150 ML RTUPB IV SCH (19:35)
[2017-04-26] MEDS ORDERED: HALOPERIDOL LACTATE INJ 5 MG/1 ML VIAL ONE (20:25)
[2017-04-26] MEDS ORDERED: HALOPERIDOL LACTATE INJ 5 MG/1 ML VIAL IV ONE (20:30)
--- NOTE | 2017-04-26 22:04 | EKG REPORT ---
SEVERITY:- ABNORMAL ECG - SINUS RHYTHM PROLONGED QT INTERVAL : Confirmed by: Denisse Cary 26-Apr-2017 22:03:14
[2017-04-27] MEDS: IPRATROPIUM/ALBUTEROL 0.5-2.5 MG/3 ML AMPUL NEB SCH ×4 (03:00→19:32)
[2017-04-27] MEDS: HEPARIN SOD (PORCINE) 5,000 UNIT/ML 1 ML SYRINGE SUBCUT SCH ×3 (06:30→22:00)
[2017-04-27] MEDS: METHYLPREDNISOLONE INJ 125 MG/2 ML SDV IV SCH (06:30)
[2017-04-27 08:03] LABS: HEMATOCRIT 37.3 % (37.9-51.0); HEMOGLOBIN 12.6 g/dL (13.5-17.0); HGB HCT DIFFERENCE 0.5; MEAN CORPUSCULAR HEMOGLOBIN 28.9 pg (27.0-33.4); MEAN CORPUSCULAR HGB CONC 33.9 g/dL (32.0-36.0); MEAN CORPUSCULAR VOLUME 85 fl (80-97); RED BLOOD COUNT 4.37 10^6/uL (4.35-5.55); RED CELL DISTRIBUTION WIDTH 13.4 % (11.5-14.0)
[2017-04-27 08:20] LABS: BAND NEUTROPHILS % (MANUAL) 3 % (3-5); BASOPHILS % (MANUAL) 0 % (0-2); EOSINOPHILS % (MANUAL) 0 % (0-6); LYMPHOCYTES % (MANUAL) 4 % (13-45); TOTAL CELLS COUNTED 100
[2017-04-27 08:21] LABS: TOXIC GRANULATION SLIGHT
[2017-04-27 08:22] LABS: RBC MORPHOLOGY COMMENT NORMO-CYTIC/CHROMIC
[2017-04-27 08:27] LABS: WHITE BLOOD COUNT 32.7 10^3/uL (4.0-10.5)
[2017-04-27] MEDS ORDERED: METHYLPREDNISOLONE INJ 125 MG/2 ML SDV IV SCH (08:31)
[2017-04-27] MEDS: GUAIFENESIN 600 MG TABLET.SA PO SCH ×2 (10:10→22:07)
--- NOTE | 2017-04-27 13:48 | PDOC PROGRESS REPORT ---
Subjective Progress Note for:: 04/27/17 Subjective:: Patient seen on morning rounds . Continues to have cough. He is resting comfortably in bed. His is at bedside. He denies chest pain, dyspnea or palpitations. Denies fever or chills. He denies nausea, abdominal pain or diarrhea. Mainly review of systems is negative Physical Exam Vital Signs: Temp Pulse Resp BP Pulse Ox 98.1 F 84 19 126/64 H 96 04/27/17 12:02 04/27/17 12:02 04/27/17 12:02 04/27/17 12:02 04/27/17 12:02 Intake & Output 04/26/17 04/27/17 04/28/17 06:59 06:59 06:59 Intake Total 1550 1430 Output Total 550 Balance 1550 880 Weight 104.2 kg 105.4 kg General appearance: PRESENT: no acute distress, obese, well-developed, well- nourished Head exam: PRESENT: atraumatic, normocephalic Eye exam: PRESENT: conjunctiva pink, EOMI, PERRLA. ABSENT: scleral icterus Ear exam: PRESENT: normal external ear exam Mouth exam: PRESENT: moist, tongue midline Neck exam: ABSENT: carotid bruit, JVD, lymphadenopathy, thyromegaly Respiratory exam: PRESENT: rhonchi, symmetrical, unlabored. ABSENT: rales, wheezes Cardiovascular exam: PRESENT: RRR. ABSENT: diastolic murmur, rubs, systolic murmur Pulses: PRESENT: normal dorsalis pedis pul Vascular exam: PRESENT: normal capillary refill GI/Abdominal exam: PRESENT: normal bowel sounds, soft. ABSENT: distended, guarding, mass, organolmegaly, rebound, tenderness Rectal exam: PRESENT: deferred Extremities exam: PRESENT: full ROM. ABSENT: calf tenderness, clubbing, pedal edema Neurological exam: PRESENT: alert, awake, oriented to person, oriented to place , oriented to time, oriented to situation, CN II-XII grossly intact. ABSENT: motor sensory deficit Psychiatric exam: PRESENT: appropriate affect, normal mood. ABSENT: homicidal ideation, suicidal ideation Skin exam: PRESENT: dry, intact, warm. ABSENT: cyanosis, rash Results Laboratory Results: 04/27/17 07:30 04/26/17 04:41 04/27/17 07:30 WBC 32.7 H* D RBC 4.37 Hgb 12.6 L Hct 37.3 L MCV 85 MCH 28.9 MCHC 33.9 RDW 13.4 Plt Count 342 Seg Neutrophils % Not Reportable Lymphocytes % Not Reportable Monocytes % Not Reportable Eosinophils % Not Reportable Basophils % Not Reportable Absolute Neutrophils Not Reportable Absolute Lymphocytes Not Reportable Absolute Monocytes Not Reportable Absolute Eosinophils Not Reportable Absolute Basophils Not Reportable 04/25/17 21:35 Troponin I < 0.012 Impressions: Chest X-Ray 04/25/17 17:05 IMPRESSION: POSSIBLE EARLY INFILTRATE IN THE RIGHT LUNG BASE. Assessment & Plan - Diagnosis (1) Respiratory distress Is this a current diagnosis for this admission?: Yes Plan: Improved with IV steroids, nebulizer treatments, broad-spectrum antibiotics. (2) Bronchospasm Is this a current diagnosis for this admission?: Yes (3) Pneumonia Qualifiers: Pneumonia type: due to unspecified organism Laterality: right Lung location: lower lobe of lung Qualified Code(s): J18.1 - Lobar pneumonia, unspecified organism Is this a current diagnosis for this admission?: Yes Plan: #1 (4) Chest wall pain Is this a current diagnosis for this admission?: Yes Plan: IV steroids and taper. (5) Leukocytosis Qualifiers: Leukocytosis type: unspecified Qualified Code(s): D72.829 - Elevated white blood cell count, unspecified Is this a current diagnosis for this admission?: Yes Plan: Improving with current treatment. Secondary to right lower lobe pneumonia. (6) GERD (gastroesophageal reflux disease) Qualifiers: Esophagitis presence: without esophagitis Qualified Code(s): K21.9 - Gastro -esophageal reflux disease without esophagitis Is this a current diagnosis for this admission?: Yes Plan: Continue PPI therapy (7) Tobacco abuse Is this a current diagnosis for this admission?: Yes Plan: Patient's was counseled. He is not contemplating quitting. - Time Time Spent with patient: 25-34 minutes Critical Time spent with patient: 15-24 minutes Medications reviewed and adjusted accordingly: Yes Anticipated discharge: Home
[2017-04-27] MEDS ORDERED: METHYLPREDNISOLONE INJ 40 MG/1 ML SDV IV SCH (14:00)
[2017-04-27] MEDS: LEVOFLOXACIN 750 MG/D5W RTU 750 MG/150 ML RTUPB IV SCH (17:56)
[2017-04-28 02:24] VITALS: BP 132/67
[2017-04-28] MEDS: IPRATROPIUM/ALBUTEROL 0.5-2.5 MG/3 ML AMPUL NEB SCH ×2 (02:58→08:39)
[2017-04-28 05:06] LABS: HEMATOCRIT 37.6 % (37.9-51.0); HEMOGLOBIN 12.8 g/dL (13.5-17.0); HGB HCT DIFFERENCE 0.8; MEAN CORPUSCULAR HEMOGLOBIN 29.4 pg (27.0-33.4); MEAN CORPUSCULAR HGB CONC 34.1 g/dL (32.0-36.0); MEAN CORPUSCULAR VOLUME 86 fl (80-97); RED BLOOD COUNT 4.37 10^6/uL (4.35-5.55); RED CELL DISTRIBUTION WIDTH 13.4 % (11.5-14.0); WHITE BLOOD COUNT 25.1 10^3/uL (4.0-10.5)
[2017-04-28] MEDS: HEPARIN SOD (PORCINE) 5,000 UNIT/ML 1 ML SYRINGE SUBCUT SCH (05:15)
[2017-04-28 05:45] LABS: BAND NEUTROPHILS % (MANUAL) 1 % (3-5); BASOPHILS % (MANUAL) 0 % (0-2); EOSINOPHILS % (MANUAL) 0 % (0-6); LYMPHOCYTES % (MANUAL) 11 % (13-45); TOTAL CELLS COUNTED 100
[2017-04-28 05:46] LABS: RBC MORPHOLOGY COMMENT NORMO-CYTIC/CHROMIC; TOXIC GRANULATION 1+
--- NOTE | 2017-04-28 09:40 | Physician Advisory Note ---
Physician Advisor ProgressNote .: Pursuant to the plan for [facility], I have reviewed the medical record for this patient. Physician Advisor Statement: Please consider documenting, if you agree: 1. "RLL PNA, suspect ____" (aspiration, given drug abuse? gram neg? gram pos? ...) --PLEASE GIVE SUSPECTED BACTERIA FOR ANY PNA! 2. "chest pain, likely due to ____" (pleurisy from PNA? - coders can't assume any connection ...) 3. status/med necessity - below Status: Self-pay pt appropriate to come in as Obs initially, but despite aggressive care he remains recurrently tachycardic/tachypneic, still coughing. Appropriate to change to Inpatient status 02/24. Thanks! CK
[2017-04-28] MEDS: GUAIFENESIN 600 MG TABLET.SA PO SCH (09:59)
[2017-04-28] MEDS ORDERED: ACYCLOVIR 5% OINTMENT 15 GM TP SCH (14:00)
[2017-04-28 14:44] LABS: PATH REVIEW PATHOLOGIST REVIEWED
--- NOTE | 2017-04-28 14:49 | PDOC DISCHARGE SUMMARY ---
General - Admit/Disc Date/PCP Admission Date/Primary Care Provider: 04/25/17 21:13 Discharge Date: 04/28/17 - Discharge Diagnosis (1) Respiratory distress Is this a current diagnosis for this admission?: Yes Summary: Resolved. Patient is no longer tachypneic, tachycardic or febrile. (2) Bronchospasm Is this a current diagnosis for this admission?: Yes Summary: Resolved with nebulizers and steroid (3) Pneumonia Is this a current diagnosis for this admission?: Yes Summary: We will continue Levaquin for the next 5 days. Sputum culture never sent. Blood cultures negative. Patient did have upper respiratory sinus infection prior to pneumonia. Most likely strep pneumonia. (4) Chest wall pain Is this a current diagnosis for this admission?: Yes (5) Leukocytosis Is this a current diagnosis for this admission?: Yes (6) GERD (gastroesophageal reflux disease) Is this a current diagnosis for this admission?: Yes (7) Tobacco abuse Is this a current diagnosis for this admission?: Yes Summary: Counseled patient does not plan on quitting. - Additional Information Resuscitation Status: Full Code Discharge Diet: Regular Discharge Activity: Activity As Tolerated Home Medications: Acetaminophen [Tylenol 325 mg Tablet] 650 mg PO Q4HP PRN tablet 04/28/17 Guaifenesin [Mucinex Sr 600 mg Tablet.sa] 600 mg PO Q12 tablet.sa 04/28/17 Levofloxacin [Levaquin 750 mg Tablet] 750 mg PO DAILY #5 tablet 04/28/17 History of Present Illness Patient complains of: Shortness of breath and cough History of Present Illness: MINNA UMAÑA is a 26 year old male with a past medical history of polysubstance abuse, tobacco and recent smoking methamphetamine. He has had approximately 3 weeks of intermittent shortness of breath, nonproductive cough and fever for which she has sought evaluation in multiple emergency rooms. He has been diagnosed with pneumonia and prescribed antibiotics but has not filled nor discontinued tobacco or polysubstance abuse. Today he develops sharp 3 out of 5 intermittent retrosternal chest pain exacerbated by deep breathing. In the emergency room he was found to have right lower lobe pneumonia, leukocytosis and fever. He started on empiric antibiotics and referred to the hospitalist for admission. Hospital Course Hospital Course: Patient was admitted to the medical floor with IV broad-spectrum antibiotics after blood cultures 2 were obtained. He was given IV fluid bolus which resolved tachycardia and borderline hypotension. He was started on IV steroids for cough and congestion. Steroids were weaned over the next 2 days. Fever resolved. He improved over the next 2 days. Leukocytosis is improved. Oxygen has been weaned to room air. Physical Exam Vital Signs: Temp Pulse Resp BP Pulse Ox 98.0 F 78 18 132/67 H 96 04/28/17 10:45 04/28/17 10:45 04/28/17 10:45 04/28/17 10:45 04/28/17 10:45 Intake & Output 04/27/17 04/28/17 04/29/17 06:59 06:59 06:59 Intake Total 1430 1480 Output Total 550 Balance 880 1480 Weight 105.4 kg 105 kg General appearance: PRESENT: no acute distress, obese, well-developed, well- nourished Head exam: PRESENT: atraumatic, normocephalic Eye exam: PRESENT: conjunctiva pink, EOMI, PERRLA. ABSENT: scleral icterus Ear exam: PRESENT: normal external ear exam Mouth exam: PRESENT: moist, tongue midline Neck exam: ABSENT: carotid bruit, JVD, lymphadenopathy, thyromegaly Respiratory exam: PRESENT: clear to auscultation kostas. ABSENT: rales, rhonchi, wheezes Cardiovascular exam: PRESENT: RRR. ABSENT: diastolic murmur, rubs, systolic murmur Pulses: PRESENT: normal dorsalis pedis pul Vascular exam: PRESENT: normal capillary refill GI/Abdominal exam: PRESENT: normal bowel sounds, soft. ABSENT: distended, guarding, mass, organolmegaly, rebound, tenderness Rectal exam: PRESENT: deferred Extremities exam: PRESENT: full ROM. ABSENT: calf tenderness, clubbing, pedal edema Neurological exam: PRESENT: alert, awake, oriented to person, oriented to place , oriented to time, oriented to situation, CN II-XII grossly intact. ABSENT: motor sensory deficit Psychiatric exam: PRESENT: appropriate affect, normal mood. ABSENT: homicidal ideation, suicidal ideation Skin exam: PRESENT: dry, intact, warm. ABSENT: cyanosis, rash Results Laboratory Results: 04/28/17 04:11 04/26/17 04:41 04/28/17 04:11 WBC 25.1 H RBC 4.37 Hgb 12.8 L Hct 37.6 L MCV 86 MCH 29.4 MCHC 34.1 RDW 13.4 Plt Count 371 Seg Neutrophils % Not Reportable Lymphocytes % Not Reportable Monocytes % Not Reportable Eosinophils % Not Reportable Basophils % Not Reportable Absolute Neutrophils Not Reportable Absolute Lymphocytes Not Reportable Absolute Monocytes Not Reportable Absolute Eosinophils Not Reportable Absolute Basophils Not Reportable 04/25/17 21:35 Troponin I < 0.012 Impressions: Chest X-Ray 04/25/17 17:05 IMPRESSION: POSSIBLE EARLY INFILTRATE IN THE RIGHT LUNG BASE. Qualifiers PATEINT BEING DISCHARGED WITH ANY OF THE FOLLOWING DIAGNOSIS?: No Plan Discharge Plan: Home Time Spent: Less than 30 Minutes
[2017-04-28] MEDS ORDERED: GUAIFENESIN 600 MG TABLET.SA PO SCH (22:00)
== END 2017-04-28 10:58 | disposition home or self-care (01) ==
LOC: ER 16:50 → EH 21:13 → 4N 22:15
PROVIDERS: ADMIT Internal Medicine; ATTEND Internal Medicine
DX: R06.00 Dyspnea, unspecified (principal); J98.01 Acute bronchospasm; J18.1 Lobar pneumonia, unspecified organism; R07.89 Other chest pain; D72.829 Elevated white blood cell count, unspecified; K21.9 Gastro-esophageal reflux disease without esophagitis; R00.0 Tachycardia, unspecified; I95.9 Hypotension, unspecified; E66.9 Obesity, unspecified; F41.9 Anxiety disorder, unspecified; F19.10 Other psychoactive substance abuse, uncomplicated; F17.210 Nicotine dependence, cigarettes, uncomplicated; T75.89XA Other specified effects of external causes, initial encounter; Z82.5 Family history of asthma and other chronic lower respiratory diseases; Z68.33 Body mass index [BMI] 33.0-33.9, adult
CPT/HCPCS: 93005 ×2; 94640 ×4; 99291; 96361; 96375; 96365; 96366; 36415 ×4; 87040; 82553; 82550; 85025 ×4; 85610; 80048; 80053; 84484; 71010; 93010 ×2; G0378 ×5; J1644 ×3; J1630; J2930 ×3; J3490 ×3; J7030; J3370; J1956 ×3; J7620 ×3; J0692

== ENCOUNTER 2017-11-10 19:18 | Emergency (ER) | payer SELFPAY ==
[2017-11-10 19:23] VITALS: BP 130/72
--- NOTE | 2017-11-10 19:59 | ER Document Report ---
ED General - General Chief Complaint: Medical Clearance Stated Complaint: REQUESTING DETOX Time Seen by Provider: 11/10/17 19:54 TRAVEL OUTSIDE OF THE [place] IN LAST 30 DAYS: No - HPI Patient complains to provider of: Detox Notes: Patient coming in for evaluation for detox. Patient states recently was released from skilled nursing has a history of methamphetamine use therefore coming into the ER tonight requesting detox. Patient states he has been through detox before and [facility] in [place] and other places. Patient states they would like to receive detox tonight. Denies any fevers chills nausea vomiting diarrhea. - Related Data Allergies/Adverse Reactions: amoxicillin [Amoxicillin] Allergy (Verified 11/10/17 19:18) Past Medical History - Social History Smoking Status: Current Every Day Smoker Frequency of alcohol use: None Drug Abuse: Methamphetamine Family History: COPD Patient has suicidal ideation: No Patient has homicidal ideation: No Pulmonary Medical History: Reports: Hx Asthma Renal/ Medical History: Denies: Hx Peritoneal Dialysis Psychiatric Medical History: Reports: Hx Attention Deficit Hyperactivity Disorder - ODD, Hx Depression - ADHD/Anxiety Past Surgical History: Reports: Hx Tonsillectomy - Immunizations Hx Diphtheria, Pertussis, Tetanus Vaccination: Yes Review of Systems - Review of Systems Constitutional: Other - Detox from methamphetamines EENT: No symptoms reported Cardiovascular: No symptoms reported Respiratory: No symptoms reported Gastrointestinal: No symptoms reported Genitourinary: No symptoms reported Male Genitourinary: No symptoms reported Musculoskeletal: No symptoms reported Skin: No symptoms reported Hematologic/Lymphatic: No symptoms reported Neurological/Psychological: No symptoms reported -: Yes All other systems reviewed and negative Physical Exam - Vital signs Vitals: Temp Pulse Resp BP Pulse Ox 98.1 F 110 H 20 130/72 H 97 11/10/17 19:22 11/10/17 19:22 11/10/17 19:22 11/10/17 19:22 11/10/17 19:22 Interpretation: Normal - General General appearance: Appears well, Alert - HEENT Head: Normocephalic, Atraumatic Eyes: Normal Pupils: PERRL - Respiratory Respiratory status: No respiratory distress Chest status: Nontender Breath sounds: Normal Chest palpation: Normal - Cardiovascular Rhythm: Regular Heart sounds: Normal auscultation Murmur: No - Abdominal Inspection: Normal Distension: No distension Bowel sounds: Normal Tenderness: Nontender Organomegaly: No organomegaly - Back Back: Normal, Nontender - Extremities General upper extremity: Normal inspection, Nontender, Normal color, Normal ROM , Normal temperature General lower extremity: Normal inspection, Nontender, Normal color, Normal ROM , Normal temperature, Normal weight bearing. No: Gaurav's sign - Neurological Neuro grossly intact: Yes Cognition: Normal Orientation: AAOx4 Araceli Coma Scale Eye Opening: Spontaneous Araceli Coma Scale Verbal: Oriented [place] Coma Scale Motor: Obeys Commands [place] Coma Scale Total: 15 Speech: Normal Motor strength normal: LUE, RUE, LLE, RLE Sensory: Normal - Psychological Associated symptoms: Normal affect, Normal mood - Skin Skin Temperature: Warm Skin Moisture: Dry Skin Color: Normal Course - Re-evaluation Re-evalutation: 11/10/17 20:06 Patient coming in requesting detox for methamphetamines. Patient was given resources to follow up with. Patient at this time is currently declining blood draws. Patient states he will follow-up tomorrow. We did attempt to contact 24 hours service at [facility] and [facility] however states that they will require 1500 hrs. and advance. Patient was encouraged follow-up [facility] services and agree to family services. Patient states understanding was discharged. - Vital Signs Vital signs: Temp Pulse Resp BP Pulse Ox 98.1 F 110 H 20 130/72 H 97 11/10/17 19:22 11/10/17 19:22 11/10/17 19:22 11/10/17 19:22 11/10/17 19:22 Discharge - Discharge Clinical Impression: History of amphetamine abuse Condition: Good Disposition: HOME, SELF-CARE Additional Instructions: Congratulations on decision to seek drug detox from amphetamines. Please follow-up with the services provided. I would recommend calling [facility] integrated family services or the services below. Return to ER if symptoms worsen. [facility] in [place], [place] [address], [place] [address] Open 24 hours Integrated family services is also available 03 03.
== END 2017-11-10 20:01 | disposition home or self-care (01) ==
LOC: ER 19:18
DX: F15.10 Other stimulant abuse, uncomplicated (principal); F17.200 Nicotine dependence, unspecified, uncomplicated; J45.909 Unspecified asthma, uncomplicated; Z88.0 Allergy status to penicillin
CPT/HCPCS: 99282

== ENCOUNTER 2017-11-11 00:06 | Emergency (ER) | payer SELFPAY ==
[2017-11-11] MEDS ORDERED: HALOPERIDOL 5 MG TABLET PO ONE (01:14)
--- NOTE | 2017-11-11 01:16 | ER Document Report ---
ED General - General Chief Complaint: Drug Abuse Stated Complaint: CHEST PAIN Time Seen by Provider: 11/11/17 00:19 Notes: Patient is a 27-year-old male without past medical history, prior history of methamphetamine abuse states he has been sober for 42 days who presents with paranoid delusions, anxiety, and intermittent auditory hallucinations. The patient reports that ever since he was in intermediate he has been extraordinarily paranoid, convinced that people are following him at all times, and that he is being watched. He also feels like it is "all just a big set up". He denies ever feeling like this in the past except for when he has been under the influence of methamphetamine. He is very clear to state that he has not used since being arrested and placed in intermediate. He notes he is currently homeless, feels extremely unsafe anywhere, and is constantly convinced that someone is going to either kill him or he will spontaneously . Nothing improves or worsens his symptoms. He reports tonight that he did have some chest discomfort which he feels is related to anxiety. He denies any known cardiac history, history of DVT or pulmonary embolus. TRAVEL OUTSIDE OF THE [place] IN LAST 30 DAYS: No - Related Data Allergies/Adverse Reactions: amoxicillin [Amoxicillin] Allergy (Verified 11/10/17 19:18) Past Medical History - General Information source: Patient - Social History Smoking Status: Current Every Day Smoker Chew tobacco use (# tins/day): No Frequency of alcohol use: Rare Drug Abuse: Marijuana, Methamphetamine Lives with: Homeless Family History: COPD Patient has suicidal ideation: No Patient has homicidal ideation: No Pulmonary Medical History: Reports: Hx Asthma Renal/ Medical History: Denies: Hx Peritoneal Dialysis Psychiatric Medical History: Reports: Hx Attention Deficit Hyperactivity Disorder - ODD, Hx Depression - ADHD/Anxiety Past Surgical History: Reports: Hx Tonsillectomy - Immunizations Hx Diphtheria, Pertussis, Tetanus Vaccination: Yes Review of Systems - Review of Systems Notes: Constitutional: Negative for fever. HENT: Negative for sore throat. Eyes: Negative for visual changes. Cardiovascular: Positive for chest pain. Respiratory: Negative for shortness of breath. Gastrointestinal: Negative for abdominal pain, vomiting or diarrhea. Genitourinary: Negative for dysuria. Musculoskeletal: Negative for back pain. Skin: Negative for rash. Neurological: Negative for headaches, weakness or numbness. 10 point ROS negative except as marked above and in HPI. Physical Exam - Vital signs Vitals: Resp Pulse Ox 21 H 99 11/11/17 00:15 11/11/17 00:15 Interpretation: Normal Notes: PHYSICAL EXAMINATION: GENERAL: Well-appearing, well-nourished and in no acute distress. HEAD: Atraumatic, normocephalic. EYES: Pupils equal round and reactive to light, extraocular movements intact, sclera anicteric, conjunctiva are normal. ENT: nares patent, oropharynx clear without exudates. Moist mucous membranes. NECK: Normal range of motion, supple without lymphadenopathy LUNGS: Breath sounds clear to auscultation bilaterally and equal. No wheezes rales or rhonchi. HEART: Regular rate and rhythm without murmurs ABDOMEN: Soft, nontender, normoactive bowel sounds. No guarding, no rebound. No masses appreciated. EXTREMITIES: Normal range of motion, no pitting or edema. No cyanosis. NEUROLOGICAL: No focal neurological deficits. Moves all extremities spontaneously and on command. PSYCH: Highly anxious, tremulous SKIN: Warm, Dry, normal turgor, no rashes or lesions noted. Course - Re-evaluation Re-evalutation: 11/11/17 01:15 Patient presents with paranoia, delusions, digoxin level auditory hallucinations , and appears extraordinarily anxious on exam. He has not used methamphetamine for over 40 days and this is not withdrawal or acute intoxication from methamphetamine. I am concerned the patient may be developing acute psychosis has he reports that for the entire duration of his time during intermediate and since being released from intermediate he has been extraordinarily paranoid, feels that he is being followed, and has a pervasive fear that he is going to be murdered or simply . The patient is extremely anxious on my assessment. He is complaining of chest pain although clinically I do not suspect ACS, pneumothorax or acute PE. Will obtain basic labs, psychiatric screen labs. His psychiatric screening assessment is normal. He will voluntary remain in the emergency department for evaluation by psychiatry in the morning. - Vital Signs Vital signs: Temp Pulse Resp BP Pulse Ox 17 112/74 97 11/11/17 03:01 11/11/17 03:00 11/11/17 03:01 - Laboratory Result Diagrams: 11/11/17 01:20 11/11/17 01:20 Laboratory results interpreted by me: 11/11/17 11/11/17 01:20 01:20 WBC 16.7 H Absolute Neutrophils 12.7 H Sodium 146.4 H Direct Bilirubin 0.9 H Salicylates < 1.0 L Acetaminophen < 10 L - Diagnostic Test Radiology reviewed: Image reviewed, Reports reviewed Radiology results interpreted by me: 11/11/17 03:16 Chest x-ray: No acute infiltrate or pneumothorax - EKG Interpretation by Me Additional EKG results interpreted by me: 11/11/17 03:16 Sinus tachycardia. Rate 113. No ST elevations or depressions. QTC is 434. Discharge - Discharge Clinical Impression: Anxiety, Paranoid delusion Chest pain Qualifiers: Chest pain type: unspecified Qualified Code(s): R07.9 - Chest pain, unspecified Condition: Stable
--- NOTE | 2017-11-11 01:30 | RADIOLOGY REPORT (SQ) ---
EXAM DESCRIPTION: CHEST SINGLE VIEW CLINICAL HISTORY: chest pain COMPARISON: 04/25/2017 FINDINGS: Single frontal view of the chest. The cardiomediastinal silhouette has normal size and contour. No consolidation, pneumothorax, or pleural effusion. Leads overlie the chest. No displaced rib fractures identified. Upper abdominal soft tissues are unremarkable. IMPRESSION: 1. No acute pulmonary process identified.
[2017-11-11 01:34] LABS: ABSOLUTE BASOPHILS # (AUTO) 0.1 10^3/uL (0.0-0.2); ABSOLUTE LYMPHOCYTES (AUTO) 2.8 10^3/uL (0.5-4.7); ABSOLUTE NEUT (AUTO) 12.7 10^3/uL (1.7-8.2); BASOPHILS % (AUTO) 0.4 % (0-2); EOSINOPHILS % (AUTO) 0.2 % (0-6); HEMATOCRIT 43.1 % (37.9-51.0); HEMOGLOBIN 14.7 g/dL (13.5-17.0); LYMPHOCYTES % (AUTO) 16.8 % (13-45); MEAN CORPUSCULAR HEMOGLOBIN 29.1 pg (27.0-33.4); MEAN CORPUSCULAR HGB CONC 34.1 g/dL (32.0-36.0); MEAN CORPUSCULAR VOLUME 85 fl (80-97); MONOCYTES % (AUTO) 6.2 % (3-13); PLATELET COUNT 327 10^3/uL (150-450); RED BLOOD COUNT 5.06 10^6/uL (4.35-5.55); RED CELL DISTRIBUTION WIDTH 13.1 % (11.5-14.0); SEGMENTED NEUTROPHILS % (AUTO) 76.4 % (42-78); TOTAL CELLS COUNTED % (AUTO) 100 %; WHITE BLOOD COUNT 16.7 10^3/uL (4.0-10.5)
[2017-11-11 01:50] LABS: ACETAMINOPHEN < 10 ug/mL (10-30); ALANINE AMINOTRANSFERASE 35 U/L (21-72); ALBUMIN 4.5 g/dL (3.5-5.0); ALCOHOL < 10 mg/dL (NONE DETECTED); ALKALINE PHOSPHATASE 95 U/L (38-126); ANION GAP 9 (5-19); ASPARTATE AMINO TRANSFERASE 21 U/L (17-59); BILIRUBIN,DIRECT 0.9 mg/dL (0.0-0.4); BILIRUBIN,TOTAL 0.9 mg/dL (0.2-1.3); BLOOD UREA NITROGEN 12 mg/dL (7-20); CALCIUM 9.7 mg/dL (8.4-10.2); CARBON DIOXIDE 30 mmol/L (22-30); CHLORIDE 107 mmol/L (98-107); GLUCOSE 94 mg/dL (75-110); POTASSIUM 4.4 mmol/L (3.6-5.0); SALICYLATE < 1.0 mg/dL (2.0-20.0); SODIUM 146.4 mmol/L (137-145); TOTAL PROTEIN 7.3 g/dL (6.3-8.2)
[2017-11-11 04:20] LABS: APPEARANCE,URINE CLEAR; BILIRUBIN,URINE NEGATIVE (NEGATIVE); COLOR,URINE YELLOW; GLUCOSE, URINE NEGATIVE (NEGATIVE); KETONES,URINE NEGATIVE (NEGATIVE); LEUKOCYTE ESTERASE,URINE NEGATIVE (NEGATIVE); NITRITE,URINE NEGATIVE (NEGATIVE); PROTEIN,URINE NEGATIVE (NEGATIVE); URINE SPECIFIC GRAVITY 1.015; UROBILINOGEN,URINE NEGATIVE mg/dL (<2.0)
[2017-11-11 04:35] LABS: URINE AMPHETAMINES SCREEN NEGATIVE; URINE BARBITURATES SCREEN NEGATIVE; URINE BENZODIAZEPINES SCREEN NEGATIVE; URINE COCAINE SCREEN NEGATIVE; URINE MARIJUANA (THC) SCREEN UNCONFIRMED POSITIVE; URINE METHADONE SCREEN NEGATIVE; URINE PHENCYCLIDINE SCREEN NEGATIVE
--- NOTE | 2017-11-11 09:52 | ER Document Report ---
Doctor's Note Notes: 11/11/17 09:52 Patient has been seen and evaluated resting comfortably no acute distress. Laboratory values previous provider note and vital signs have been evaluated. Patient otherwise looks to be stable for disposition/transfer.
--- NOTE | 2017-11-11 10:47 | EKG REPORT ---
SEVERITY:- OTHERWISE NORMAL ECG - SINUS TACHYCARDIA : Confirmed by: Denisse Cary 11-Nov-2017 10:46:47
[2017-11-11 11:32] VITALS: BP 123/78
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
== END 2017-11-11 12:00 | disposition home or self-care (01) ==
LOC: ER 00:06
DX: R07.9 Chest pain, unspecified (principal); F22 Delusional disorders; F41.9 Anxiety disorder, unspecified; Z59.0 Homelessness; R44.0 Auditory hallucinations; F19.10 Other psychoactive substance abuse, uncomplicated; F12.922 Cannabis use, unspecified with intoxication with perceptual disturbance; J45.909 Unspecified asthma, uncomplicated; F17.200 Nicotine dependence, unspecified, uncomplicated
CPT/HCPCS: 36415; 71045; 80053; 80307; 81001; 84484; 85025; 93005; 93010; 99285